=== PATIENT | female | born 1960 | race Caucasian/White ===

== ENCOUNTER 2018-04-27 13:18 | Emergency (ER) | payer MEDICARE ==
[2018-04-27] MEDS: LIDOCAINE 1% MDV 20ML VIAL SC (14:30)
[2018-04-27] MEDS ORDERED: ONDANSETRON 4MG/2ML VIAL (J2405) IV (14:45)
[2018-04-27] MEDS ORDERED: MORPHINE 4 MG/ML 1ML VIAL/SYRINGE (J2270) IV (15:00)
[2018-04-27] MEDS ORDERED: MORPHINE 10 MG/ML 1ML VIAL (J2270) IM (15:00)
[2018-04-27] MEDS: ONDANSETRON 4 MG ORAL DISINTEGRATING TAB (Q0162 PER 1MG) PO (15:00)
[2018-04-27] MEDS: PERCOCET 5MG/325MG TAB PO (16:16)
== END 2018-04-27 16:25 | disposition home or self-care (01) ==
LOC: M ED 13:18
DX: S52.531A Colles' fracture of right radius, initial encounter for closed fracture (principal); S52.611A Displaced fracture of right ulna styloid process, initial encounter for closed fracture; V00.181A Fall from other rolling-type pedestrian conveyance, initial encounter; Y92.89 Other specified places as the place of occurrence of the external cause; I25.10 Atherosclerotic heart disease of native coronary artery without angina pectoris; I25.2 Old myocardial infarction; I10 Essential (primary) hypertension; E78.5 Hyperlipidemia, unspecified; G89.29 Other chronic pain; F33.9 Major depressive disorder, recurrent, unspecified; Z95.5 Presence of coronary angioplasty implant and graft; Z79.899 Other long term (current) drug therapy; Z79.01 Long term (current) use of anticoagulants; Z79.82 Long term (current) use of aspirin; Z98.890 Other specified postprocedural states; Z87.891 Personal history of nicotine dependence; Z91.030 Bee allergy status; Z91.018 Allergy to other foods; Z88.8 Allergy status to other drugs, medicaments and biological substances
CPT/HCPCS: 73100

== ENCOUNTER 2018-06-08 18:45 | Emergency (ER) | payer MEDICARE ==
[2018-06-08 19:38] LABS: BASO % 0.3 % (0.0-1.0); EOS # 0.1 10^3/uL (0.0-0.50); HEMOGLOBIN 13.6 g/dl (12.0-15.5); IMMATURE GRANULOCYTE % 0.4 % (0-3.0); LYMPH # 1.9 10^3/uL (1.5-4.5); LYMPH % 13.9 % (24.0-44.0); MEAN CORPUSCULAR HEMOGLOBIN 29.7 pg (27.0-33.0); MEAN CORPUSCULAR HGB CONC 32.4 g/dl (32.0-36.5); MEAN CORPUSCULAR VOLUME 91.7 fl (80.0-96.0); MONO # 0.9 10^3/uL (0.0-0.8); MONO % 6.6 % (0.0-5.0); NEUTROPHILS # 10.5 10^3/uL (1.8-7.7); NEUTROPHILS % 77.8 % (36.0-66.0); PLATELET COUNT, AUTOMATED 188 10^3/uL (150-450); RED BLOOD COUNT 4.58 10^6/uL (4.00-5.40); RED CELL DISTRIBUTION WIDTH 13.9 % (11.5-14.5); WHITE BLOOD COUNT 13.5 10^3/uL (4.0-10.0)
[2018-06-08] MEDS: METOCLOPRAMIDE INJ 10MG/2ML VIAL (J2765) IV (19:39)
[2018-06-08] MEDS: NS 1,000 ML IV (19:40)
[2018-06-08] MEDS: HYDROMORPHONE HCL 0.5 MG/ 0.5 ML SYRINGE (J1170 PER 1) IV (19:40)
[2018-06-08 19:44] LABS: KETONE, URINE AUTO RFX NEGATIVE (NEGATIVE); LEUKOCYTE ESTERASE UR AUTO RFX NEGATIVE (NEGATIVE); MUCUS, URINE RFX SMALL (NEGATIVE); NITRITE, URINE AUTO RFX NEGATIVE (NEGATIVE); RBC, URINE AUTO RFX TNTC /HPF (0-3); SPECIFIC GRAVITY UR AUTO RFX 1.011 (1.002-1.035); SQUAM EPITHELIAL CELL UR AURFX 0 /HPF (0-6); WBC, URINE AUTO RFX 3 /HPF (0-3)
[2018-06-08 19:51] LABS: ALBUMIN 3.8 GM/DL (3.2-5.2); ALBUMIN/GLOBULIN RATIO 1.03 (1.00-1.93); ALKALINE PHOSPHATASE 92 U/L (45-117); ALT/SGPT 21 U/L (12-78); ANION GAP 10 MEQ/L (8-16); AST/SGOT 19 U/L (7-37); BILIRUBIN,DIRECT < 0.1 MG/DL (0.0-0.2); BILIRUBIN,TOTAL 0.2 MG/DL (0.2-1.0); BLOOD UREA NITROGEN 13 MG/DL (7-18); CARBON DIOXIDE LEVEL 26 MEQ/L (21-32); CHLORIDE LEVEL 111 MEQ/L (98-107); CREATININE FOR GFR 1.23 MG/DL (0.55-1.30); GLOMERULAR FILTRATION RATE 47.7 (>51); GLUCOSE, FASTING 114 MG/DL (70-100); POTASSIUM SERUM 3.3 MEQ/L (3.5-5.1); SODIUM LEVEL 147 MEQ/L (136-145); TOTAL PROTEIN 7.5 GM/DL (6.4-8.2)
[2018-06-08] MEDS: OXYCODONE/APAP 5MG/325MG(BULK FOR ED) 1 TABLET PO (22:08)
== END 2018-06-08 22:18 | disposition home or self-care (01) ==
LOC: M ED 18:45
DX: N20.1 Calculus of ureter (principal); R91.8 Other nonspecific abnormal finding of lung field; J90 Pleural effusion, not elsewhere classified; J44.9 Chronic obstructive pulmonary disease, unspecified; I95.9 Hypotension, unspecified; I25.2 Old myocardial infarction; F33.9 Major depressive disorder, recurrent, unspecified; Z87.442 Personal history of urinary calculi; Z79.899 Other long term (current) drug therapy; Z79.82 Long term (current) use of aspirin; Z79.02 Long term (current) use of antithrombotics/antiplatelets
CPT/HCPCS: J2765